=== PATIENT | female | born 1935 | race Caucasian/White ===

== ENCOUNTER 2020-10-17 20:57 | Inpatient (IN) | payer MEDICARE, OTHER ==
[~2020-10-17] VITALS: Ht 167.6 cm; Wt 70.8 kg
--- NOTE | 2020-10-17 15:15 | NUR ---
Substance Abuse Intervention: SEVERIANO conducted a substance abuse intervention with the pt due to her alcohol abuse (level was at 221). Addendum: 10/21/20 at 1245 by SEVERIANO ROBIN ERROR: SEVERIANO forgot to input note earlier and accidentally placed it under the wrong date. Note should be dated for 10/18/20 at 3:15PM.
--- NOTE | 2020-10-17 23:00 | NUR ---
GPS FUND ACCOUNTANT NOTES: ADMITTED AN 85YO FEMALE ON 5150 HOLD FOR DANGER TO SELF. PATIENT CAME FROM [facility]. PER HOLD THE PATIENT WAS INTOXICATED, REPORTED BEING DEPRESSED AND IS STRUGGLING WITH DEPRESSION. PATIENT WILL BE UNDER THE CARE OF DR. PYLE AND DR. PEREA RESPECTIVELY. UPON FACE TO FACE ASSESSMENT, PATIENT PRESENTS ALERT AND ORIENTED X3-4, SHE KNOWS THE REASON WHY SHE IS BEING ADMITTED TO THE LOCKED UNIT. SHE DOES REMEMBER CALLING 911 FOR HELP BUT CANNOT RECALL WHAT HAS TRANSPIRED AFTER THAT. PATIENT IS WARM PLEASANT BUT ADMITS TO BEING REALLY DEPRESSED AND THAT SHE HAS HAD THOUGHTS OF HURTING HERSELF. DURING ADMISSION PATIENT DENIES ANY PLANS OR THOUGHTS OF SUICIDE HOWEVER PATIENT IS WILLING AND ABLE TO CONTRACT FOR SAFETY. SHE IS AMBULATORY WITH STANDBY ASSIST, ABLE TO SIGN ADMISSION PAPERS. BELONGINGS AND CONTRABAND CHECKED.Q15 MIN CHECKS STARTED. CARE PLAN PATIENT SPECIFIC INITIATED. SKIN AND BODY ASSESSMENT DONE. NO SKIN ISSUES NOTED THIS TIME. WILL MONITOR PATIENT FOR MOOD, SAFETY AND BEHAVIOR.
[2020-10-18] MEDS ORDERED: MAG HYDROX/AL HYDROX/SIMETH 30 ML UDC PO PRN
[2020-10-18] MEDS ORDERED: BLOOD SUGAR DIAGNOSTIC 1 EACH STRIP IN ONE
[2020-10-18] MEDS ORDERED: MAGNESIUM HYDROXIDE 30 ML UDC PO PRN
[2020-10-18] MEDS ORDERED: LORAZEPAM 0.5 MG TABLET PO PRN
[2020-10-18] MEDS ORDERED: TEMAZEPAM 7.5 MG CAPSULE PO PRN
[2020-10-18] MEDS ORDERED: ACETAMINOPHEN 325 MG TABLET PO PRN
[2020-10-18] MEDS ORDERED: LOSA25TA27 PO (04:18)
[2020-10-18] MEDS ORDERED: APIX2.5T PO (04:18)
[2020-10-18] MEDS ORDERED: SIMV20TA2 PO (04:18)
[2020-10-18] MEDS ORDERED: SERT50TA PO (04:18)
[2020-10-18 07:26] LABS: ALBUMIN 3.4 g/dL (3.4-5.0); BILIRUBIN,TOTAL 0.8 mg/dL (0.2-1.0); CALCIUM, SERUM 8.8 mg/dL (8.5-10.1); POTASSIUM 3.6 mmol/L (3.5-5.1); TOTAL PROTEIN, SERUM 6.7 g/dL (6.4-8.2)
[2020-10-18 08:00] VITALS: BP 148/88
--- NOTE | 2020-10-18 09:00 | NUR ---
RN NOTE- PT ALERT INTERACTIVE ORIENTED TO PERSON PLACE PURPOSE, DEPRESSED CALM PO INTAKE GOOD, CHECKED ETOH LEVEL RESULTS <3 . NO SX OF WITHDRAWAL NOTED, VS STABLE DENIES SI HI AH VH
--- NOTE | 2020-10-18 12:36 | NUR ---
RN NOTE- PT QUESTIONED ABOUT INFLUENZA AND PNEUMONIA VACCINE ADMINISTRATION. PT STATES "I NEVER RECEIVE FLU SHOTS. THEY DON'T WORK." PT HAD PNEUMONIA VACCINE IN LAST TWO YEARS. REFUSES BOTH AT THIS TIME.
[2020-10-18 16:00] VITALS: BP 143/89
--- NOTE | 2020-10-18 16:25 | NUR ---
Initial Discharge Plan: Pt currently resides at her home alone located at [address] [place] [id number]; [phone]. Per pt, she would like to return to her home. SEVERIANO will work with the pt and the MD regarding appropriate discharge planning. SW will form a safe and proper discharge.
--- NOTE | 2020-10-18 16:25 | NUR ---
Family Contact: SW called the pts grandson, Rinku ([phone]), and left a voicemail stating that she would like to discuss the pts discharge plan.
[2020-10-18 20:39] VITALS: BP 145/77
[2020-10-18] MEDS: TRAZODONE 50 MG TABLET PO SCH (21:06)
--- NOTE | 2020-10-18 21:22 | NUR ---
GPS RN NOTE PT REQUESTING FOR SLEEPING MED, RESTORIL 7.5 MG PO GIVEN. CONTINUE TO MONITOR.
--- NOTE | 2020-10-18 22:22 | NUR ---
GPS RN NOTE PT FALL ASLEEP, NO DISTRESS OR DISCOMFORT NOTED.
[2020-10-19 08:00] VITALS: BP 131/81
[2020-10-19 08:09] LABS: BASOPHILS % (AUTO) 0.8 % (0.0-2.0); EOSINOPHILS % (AUTO) 4.2 % (0.0-6.0); HEMATOCRIT 41 % (33-45); LYMPHOCYTES % (AUTO) 32.3 % (20.0-44.0); MEAN CORPUSCULAR HGB CONC 34 g/dl (31.0-36.0); MEAN CORPUSCULAR VOLUME 95 fL (82-100); MONOCYTES # (AUTO) 0.8 /CMM (0.1-1.30); MONOCYTES % (AUTO) 12.7 % (2.0-12.0); NEUTROPHILS # (AUTO) 3.1 /CMM (1.8-8.9); PLATELET COUNT (AUTO) 167 /CMM (150-450); RED BLOOD CELL COUNT(AUTO) 4.31 MIL/uL (4.0-5.2); WHITE BLOOD COUNT (AUTO) 6.2 K/uL (4.3-11.0)
[2020-10-19 08:43] LABS: ALBUMIN 3.3 g/dL (3.4-5.0); BILIRUBIN,TOTAL 0.8 mg/dL (0.2-1.0); CREATININE 0.8 mg/dL (0.6-1.3); MAGNESIUM 2.1 mg/dL (1.8-2.4); PHOSPHORUS 3.9 mg/dL (2.5-4.9); TOTAL PROTEIN, SERUM 6.7 g/dL (6.4-8.2)
[2020-10-19 08:54] LABS: THYROID STIMULATING HORMONE 2.328 uIU/mL (0.358-3.74)
--- NOTE | 2020-10-19 09:00 | NUR ---
RN-CO: TEXTED DR SOTO RANGEL TO RECONCILE HOME MEDICATIONS.
--- NOTE | 2020-10-19 12:09 | NUR ---
Family Contact: SW called the pts grandson, Rinku ([phone]), and left a voicemail stating that she would like to discuss the pts discharge plan.
[2020-10-19 16:00] VITALS: BP 120/68
[2020-10-19 16:18] LABS: BILIRUBIN,URINE NEGATIVE (NEGATIVE); COLOR,URINE YELLOW (YELLOW); LEUKOCYTE ESTERASE ,URINE SMALL (NEGATIVE); NITRITE, URINE NEGATIVE (NEGATIVE); PROTEIN,URINE NEGATIVE (NEGATIVE); UGLUCOSE NEGATIVE (NEGATIVE); UROBILINOGEN,URINE 0.2 EU/dL (0.2)
[2020-10-19] MEDS: APIXABAN 2.5 MG TABLET PO SCH (16:25)
[2020-10-19 16:57] LABS: BACTERIA,URINE 1+ /HPF (None Seen); RBC,URINE 0-2 /HPF (0-2)
[2020-10-19 17:22] LABS: MUCUS,URINE Few /LPF (None Seen)
[2020-10-19 20:51] VITALS: BP 153/84
[2020-10-19] MEDS: TRAZODONE 50 MG TABLET PO SCH (21:21)
[2020-10-19] MEDS ORDERED: TRAZODONE 50 MG TABLET PO SCH (23:30)
[2020-10-20] MEDS ORDERED: TRAZODONE 50 MG TABLET PO ONE (00:30)
[2020-10-20 08:00] VITALS: BP 155/88
[2020-10-20] MEDS: LOSARTAN POTASSIUM 25 MG TABLET PO SCH (08:43)
[2020-10-20] MEDS: SIMVASTATIN 20 MG TABLET PO SCH (08:43)
[2020-10-20] MEDS: APIXABAN 2.5 MG TABLET PO SCH ×2 (08:44→16:26)
--- NOTE | 2020-10-20 11:40 | NUR ---
Individual Intervention: SW met with the pt at bedside and inquired about the pt returning to her home soon. Pt stated that she wanted to go home as soon as possible. When the SW asked if she was going to continue to drink she stated that she drinks every day because she enjoys it but she can stop whenever she wants. SW stated that drinking caused her to end up in the hospital and the pt stated, "I will never drink as much as I did that night." SW asked if she can identify alternative coping mechanisms and pt stated that when she is sad she will call her children and attempt to speak to them instead of drinking so much.
--- NOTE | 2020-10-20 13:26 | NUR ---
GIOVANNICO: MOM GIVEN FOR C/O CONSTIPATION.
[2020-10-20 16:00] VITALS: BP 126/83
--- NOTE | 2020-10-20 19:30 | NUR ---
GPS RN NOTE, RECEIVED PATIENT AWAKE AND IN BED, NO S/S OR COMPLAINTS OF PAIN AT THIS TIME. PATIENT IS DISPLAYING NO S/S OF APPARENT DISTRESS AT THIS TIME. PATIENT BREATHING IS UNLABORED WITH EQUAL RISE AND FALL OF THE CHEST. PATIENT IS ALERT AND ORIENTED X 3 ON ROOM AIR WITH A SPO2 99%. PATIENT IS COMPLIANT WITH MEDICATIONS, DEPRESSED, UNMOTIVATED, GETS UP FOR NEEDS, AND COOPERATIVE. PATIENT DENIES SUICIDAL AND HOMICIDAL IDEATIONS AT THIS TIME. PATIENT ASSISTED WITH TURNING AND REPOSITIONING Q2HR AND PRN FOR COMFORT AND CIRCULATION. PATIENT HAS NO NEEDS AT THIS TIME. PATIENT EDUCATED ON THE USE OF THE CALL CHRISTIE. PATIENT BED SIDE RAILS UP X 2 FOR SAFETY. PATIENT BED IS LOCKED, LOW, WITH BED ALARM ON. WILL CONTINUE TO MONITOR THIS PATIENT Q15 MINUTES WITH THE HELP OF STAFF TO MAINTAIN SAFETY.
[2020-10-20 20:27] VITALS: BP 142/92
[2020-10-20] MEDS ORDERED: TRAZODONE 50 MG TABLET PO SCH (22:00)
--- NOTE | 2020-10-21 07:30 | NUR ---
RN OPEN NOTES RECEIVED PATIENT AWAKE AND IN BED, NO SIGNS OF DISTRESS IN ROOM AIR SPO2 97%. NO COMPLAINTS OF PAIN AT THIS TIME. PATIENT BREATHING IS UNLABORED PATIENT IS ALERT AND ORIENTED X 3 ON ROOM AIR WITH A SPO2 99%. PATIENT IS COMPLIANT WITH MEDICATIONS, FLAT EFFECT GETS UP FOR NEEDS, CALM AND COOPERATIVE. COMPLAINT WITH MEDICATIONS. PATIENT DENIES SUICIDAL AND HOMICIDAL IDEATIONS AT THIS TIME.SAFETY MEASURES ARE APPLIED BED SIDE RAILS UP X2 FOR SAFETY. PATIENT BED IS LOCKED, LOW, WITH BED ALARM ON. WILL CONTINUE TO MONITOR.
[2020-10-21 08:00] VITALS: BP 149/74
[2020-10-21 08:47] VITALS: BP 149/74
[2020-10-21] MEDS: LOSARTAN POTASSIUM 25 MG TABLET PO SCH (08:47)
[2020-10-21] MEDS: APIXABAN 2.5 MG TABLET PO SCH (08:48)
[2020-10-21] MEDS: SIMVASTATIN 20 MG TABLET PO SCH (08:49)
--- NOTE | 2020-10-21 12:24 | NUR ---
Probable Cause Hearing: Pts [id number] hold was not upheld for grave disability and danger to self.
--- NOTE | 2020-10-21 12:42 | NUR ---
Friend Contact: SEVERIANO contacted the pts friend, Maria R ([phone]), and left a voicemail stating that the pt is going to be discharged and that the pt will need to be picked up.
--- NOTE | 2020-10-21 14:08 | NUR ---
Friend Contact: Pts friend, Maria R ([phone]), contacted the SW and stated that she [place] drive on the free[place] and neither can her . SW stated that the pt will be sent home on a taxi and the pts neighbor stated that she can let her into the house since she has a white.
--- NOTE | 2020-10-21 14:09 | NUR ---
Discharge Note: Pt will be discharged back to [place] [address] [place] [address]; [phone]. Pt will be transported via taxi and it will be self pay. SEVERIANO informed the pts neighbor, Maria R ([phone]), who stated that she would open the door for her as she has spare keys. Upon discharge the pt appears to be in a euthymic mood and presents with a cam affect. Pt appears to be alert and oriented x4 (time, place, self and situation). Pt denies suicidal and homicidal ideation as well as auditory and visual hallucinations. Pt appears to be ambulatory with an unsteady gait and appears to be appropriately groomed. Pt will continue to be under the care of her psychiatrist, Dr. Gao, located at [address] [place] [address] [id number] [address]; and her medical education coordinator, Dr. Thacker, located at [address] [facility], [address], [place] [address]; [phone]. Pt was given substance abuse referrals at the time of discharge that are listed below. The multidisciplinary exit care form were done, printed, signed, and given to the patient. Referrals: [facility] [address] [place] [address] Tel. [facility] [address] [place] Provider Mental Health Treatment Tele-dermatology HIV Services Telemedicine Services [facility] [address] [place] [address] [facility] [address] [place] [address]
--- NOTE | 2020-10-21 16:24 | NUR ---
fishing rod mechanic note Patient discharge to home at this time via wheelchair accompanied by jarocho Berry. Patient vitals are within normal limit, no compliant of pain at this time and no signs of distress. Patient denies SI, HI, AH, and VH. Skin is intact and photo was taken of her bilateral lower extremity and chart in. Valuables returned and signed for. Patient ID wrist band was removed and patient was escorted from the unit by staff.
--- NOTE | 2020-10-21 16:32 | NUR ---
patient refused flu and pneumonia vaccine.
== END 2020-10-21 16:24 | disposition home or self-care (01) | DRG 881 ==
LOC: GPS 22:39
PROVIDERS: ADMIT Psychiatry & Neurology Psychiatry
DX: F32.9 Major depressive disorder, single episode, unspecified (principal); R45.851 Suicidal ideations; F41.9 Anxiety disorder, unspecified; I10 Essential (primary) hypertension; I48.91 Unspecified atrial fibrillation; Z91.5 Personal history of self-harm; I83.90 Asymptomatic varicose veins of unspecified lower extremity; F10.10 Alcohol abuse, uncomplicated; Y90.0 Blood alcohol level of less than 20 mg/100 ml; Z79.01 Long term (current) use of anticoagulants
CPT/HCPCS: 36415; 80053-TC; 80061-TC; 81001; 82962-TC; 83735-TC; 84100-TC; 84443-TC; 85025-TC; 87086-TC; G0480